=== PATIENT | female | born 1965 | race Caucasian/White ===

== ENCOUNTER → 2017-06-22 | Outpatient (CLI) | payer MEDICAID ==
--- NOTE | 2017-06-22 12:28 | RADIOLOGY REPORT PS360 ---
US BIOPSY OR PARACENTESIS HISTORY: LEFT SOLID NODULE ORDERING PHYSICIAN: Jesse Perez MD PATIENT AGE: 51 years COMPARISON: Prebiopsy ultrasound performed on the same day TECHNIQUE: Following obtaining informed consent, using aseptic technique and local anesthesia with buffered lidocaine, fine-needle aspiration was performed of the left parotid mass using sonographic guidance. 3 passes were made into the nodule with a 25-gauge needle. Specimen was given to cytology. The patient tolerated the procedure well without evidence of immediate complications and left the ultrasound suite in stable condition. CYTOLOGY:Pending IMPRESSION: Uneventful ultrasound-guided fine needle aspiration of the left parotid mass. Cytology is pending
--- NOTE | 2017-06-22 12:28 | RADIOLOGY REPORT PS360 ---
US SUBMANDIBULAR (PAROTID ETC) CLINICAL INDICATION: Left parotid nodule LEFT SOLID NODULE ORDERING PHYSICIAN: Jesse Perez MD PATIENT AGE: 51 years COMPARISON: None FINDINGS: There is a hypoechoic lobular solid appearing mass within the left lobe of the parotid gland measuring 3.5 x 2.5 cm. The lesion has some heterogeneous echogenicity with some through transmission of sound. The margins are fairly well circumscribed. No obvious calcification. No cystic areas apparent. There is some hypervascularity. Right parotid gland is also imaged and has an unremarkable appearance measuring 4.5 x 2.2 cm. IMPRESSION: 3.5 x 2.5 cm left parotid solid mass. Neoplasm is considered.
== END ==
LOC: RAD 08:40
PROC: 0C993ZX Drainage of Left Parotid Gland, Percutaneous Approach, Diagnostic (ICD-10-PCS; principal; 2017-06-22)
DX: D11.0 Benign neoplasm of parotid gland (principal)